=== PATIENT | female | born 2000 | race Two or more races ===

== ENCOUNTER 2022-10-12 12:51 | Inpatient (IN) ==
[2022-10-12 12:58] VITALS: BMI 30.9
[2022-10-12 13:22] LABS: BILIRUBIN,URINE NEGATIVE (NEGATIVE); BLOOD/HEMOGLOBIN,URINE 5+ (NEGATIVE); GLUCOSE, URINE NEGATIVE (NEGATIVE); KETONES,URINE NEGATIVE (NEGATIVE); LEUKOCYTE ESTERASE ,URINE 2+ (NEGATIVE); NITRITES,URINE NEGATIVE (NEGATIVE); PROTEIN,URINE NEGATIVE (NEGATIVE); UROBILINOGEN,URINE NORMAL (NORMAL)
[2022-10-12 13:30] LABS: AMNISURE ROM TEST NO MEMBRANES RUPTURE (NO RUPTURE)
[2022-10-12 13:40] LABS: APPEARANCE,URINE SLIGHTLY HAZY (CLEAR); BACTERIA,URINE 1+ /HPF (NEGATIVE); COLOR,URINE YELLOW (YELLOW); SQUAMOUS EPITHELIAL CELL,UR FEW /HPF (NEGATIVE)
[2022-10-12] MEDS ORDERED: D5 1/2 NS 1,000 ML 1,000 ML IV ONE (14:15)
[2022-10-12] MEDS ORDERED: PITOCIN ONE (14:15)
[2022-10-12] MEDS ORDERED: BETADINE SOLN ONE (14:15)
[2022-10-12] MEDS ORDERED: D5 LR + PITOCIN 10 UNITS/L 10 UNITS/1,000 ML BAG IV ONE (14:16)
[2022-10-12] MEDS ORDERED: D5 LR + PITOCIN 10 UNITS/L 10 UNITS/1,000 ML BAG IV PRN (14:25)
[2022-10-12] MEDS ORDERED: PITOCIN IVP ONE (14:25)
[2022-10-12] MEDS ORDERED: STADOL INJ IVP PRN (14:29)
[2022-10-12] MEDS ORDERED: D5 1/2 NS 1,000 ML 1,000 ML IV SCH (15:00)
[2022-10-12] MEDS ORDERED: AMPICILLIN VIAL 2 GRAM 2 G in NS 100 ML IV + SPIKE MINIBAG* 100 ML IV SCH (15:00)
[2022-10-12 15:10] LABS: BASOPHILS # (AUTO) 0.1 X10^3/uL (0.0-0.1); BASOPHILS % (AUTO) 1.3 % (0.2-1.0); EOSINOPHILS % (AUTO) 0.4 % (0.9-2.9); HEMATOCRIT 34.9 % (36.0-47.0); HEMOGLOBIN 11.4 g/dL (12.0-16.0); LYMPHOCYTES # (AUTO) 2.3 X10^3/uL (1.3-2.9); LYMPHOCYTES % (AUTO) 25.6 % (21.0-51.0); MEAN CORPUSCULAR HEMOGLOBIN 26.2 pg (27.0-34.0); MEAN CORPUSCULAR HGB CONC 32.6 g/dL (33.0-35.0); MEAN CORPUSCULAR VOLUME 80.2 fL (80.0-100.0); MEAN PLATELET VOLUME 9.4 fL (7.4-11.0); MONOCYTES # (AUTO) 0.6 x10^3/uL (0.3-0.8); MONOCYTES % (AUTO) 6.5 % (0.0-13.0); NEUTROPHILS # (AUTO) 5.9 x10^3/uL (2.2-4.8); NEUTROPHILS % (AUTO) 66.2 % (42.0-75.0); RED BLOOD COUNT 4.35 X10^6/uL (3.5-5.4); RED CELL DISTRIBUTION WIDTH 16.7 % (11.6-16.5); WHITE BLOOD COUNT 8.8 X10^3/uL (3.6-10.0)
[2022-10-12 15:12] LABS: BLOOD UREA NITROGEN 7 mg/dL (7-18); CALCIUM 8.1 mg/dL (8.5-10.1); CARBON DIOXIDE 22.7 mmol/L (21-32); CHLORIDE 101 mmol/L (98-107); COR NA(FOR HYPERGLY) 134 mmol/L (136-145); CREATININE 0.49 mg/dL (0.55-1.02); SODIUM 133 mmol/L (136-145); eGFR NON BLACK RACES > 60 (>60)
[2022-10-12] MEDS ORDERED: ZOFRAN INJ 4 MG VIAL ONE (17:00)
[2022-10-12] MEDS ORDERED: LR 1,000 ML IV 1,000 ML IV ONE (17:01)
[2022-10-12] MEDS ORDERED: FENTANYL VIAL INJ 100 mcg ONE (17:07)
[2022-10-12] MEDS ORDERED: NAROPIN EPIDURAL 0.2% 100 ML ONE (17:07)
[2022-10-12] MEDS ORDERED: PHENERGAN INJ 25 MG IM PRN (20:19)
[2022-10-12] MEDS ORDERED: MOTRIN TAB 800 MG PO PRN ×2 (20:19→21:04)
[2022-10-12] MEDS ORDERED: PHENERGAN INJ 25 MG IM ONE (20:52)
[2022-10-12] MEDS ORDERED: D5 1/2 NS 1,000 ML 1,000 ML with PITOCIN 20 UNITS IV SCH ×2 (21:00)
[2022-10-12] MEDS ORDERED: DERMOPLAST PAIN RELIEF SPRAY TOP PRN (21:04)
[2022-10-12] MEDS ORDERED: AMBIEN PO PRN (21:04)
[2022-10-12] MEDS ORDERED: MILK OF MAGNESIA PO PRN (21:04)
[2022-10-13 04:48] LABS: HEMOGLOBIN 9.1 g/dL (12.0-16.0)
[2022-10-13] MEDS ORDERED: NS 100 ML IV 100 ML with VENOFER 400 MG IV NR ×2 (09:17)
[2022-10-13] MEDS: PRENATAL PLUS PO SCH (09:40)
[2022-10-14 04:57] VITALS: BP 114/60
[2022-10-14] MEDS: PRENATAL PLUS PO SCH (08:56)
== END 2022-10-14 11:10 | disposition home or self-care (01) | DRG 807 ==
LOC: ER 12:51 → LD 13:39 → MED/SURG 21:08
PROVIDERS: ADMIT Obstetrics & Gynecology Obstetrics; ATTEND Obstetrics & Gynecology Obstetrics
DX: O70.1 Second degree perineal laceration during delivery; Z3A.39 39 weeks gestation of pregnancy; O26.893 Other specified pregnancy related conditions, third trimester; Z37.0 Single live birth